=== PATIENT | female | born 1995 | race Caucasian/White ===

== ENCOUNTER 2020-02-05 10:19 | Emergency (ER) | payer BC, SELFPAY ==
--- NOTE | ~2020-02-05 | XR_ITS ---
EXAMINATION: XR chest 1V portable EXAM DATE: 02/05/2020 10:50 INDICATION: Cough. TECHNIQUE: Portable AP frontal chest x-ray was obtained. There is no prior study for comparison. FINDINGS: There is moderate hyperinflation. The lungs are clear. There are no pleural effusions. Th e cardiomediastinal silhouette is within normal limits. There is no pneumothorax suspected. The bon es and soft tissues are unremarkable. IMPRESSION: 1. No acute cardiopulmonary findings. 2. Hyperinflation. Reviewed, dictated and finalized at location G.
--- NOTE | 2020-02-05 10:25 | ECG_ITS ---
Measurements Intervals [place] Rate: 71 P: 109 MD: 127 QRS: 97 QRSD: 102 T: 120 QT: 405 QTc: 443 Interpretive Statements SINUS RHYTHM WITH SINUS ARRHYTHMIA ARM LEADS REVERSED INCOMPLETE RIGHT BUNDLE BRANCH BLOCK DELAYED PRECORDIAL R/S TRANSITION BORDERLINE ECG Electronically Signed On 02-05-2020 13:44:11 CDT by Diogenes Rosario D.O.
[2020-02-05 10:30] VITALS: BP 125/74; PULSE 74; RESP 20; TEMP 36.9; O2SAT 98
[2020-02-05] MEDS: SODIUM CHLORIDE 0.9% IV 1,000 ML 999 ML IV CONT (10:58)
[2020-02-05] MEDS: FAMOTIDINE 20 MG/2 ML VIAL IV PUSH (10:59)
[2020-02-05 11:20] LABS: Basophils Percent Auto 0.3 % (0.2-1.2); Eosinophils Percent Auto 0.3 % (0-4.4); Hematocrit 42.1 % (37.0-47.0); Hemoglobin 14.1 g/dL (12.0-15.0); Immature Granulocyte Absolute 0.01 K/mm3 (0.00-0.031); Immature Granulocyte Percent A 0.3 % (0-0.5); Lymphocytes Absolute Auto 0.98 K/mm3 (0.9-3.2); Mean Corpuscular HGB Conc 33.5 g/dl (32-36); Mean Corpuscular Hemoglobin 29.7 pg (26-34); Mean Corpuscular Volume 88.6 fl (80-100); Mean Platelet Volume 10.9 fl (7.4-10.4); Monocytes Absolute Auto 0.2 K/mm3 (0.1-0.6); Monocytes Percent Auto 6.9 % (2.6-8.5); Neutrophils Absolute Auto 2.3 K/mm3 (1.3-6.7); Neutrophils Percent Auto 64.2 % (45.5-73.1); Platelet Count Result 192 k/mm3 (150-375); Red Blood Count 4.75 M/mm3 (4.2-5.4); Red Cell Distribution Width 11.9 % (11.5-14.5); White Blood Count 3.5 K/mm3 (4.5-10.0)
[2020-02-05 11:28] LABS: Prothrombin Time 12.7 Seconds (11.1-14.7)
[2020-02-05 11:30] LABS: Partial Thromboplastin Time 29.5 SECONDS (22.3-36.8)
[2020-02-05 11:36] LABS: Potassium 3.9 mmol/L (3.4-5.0)
[2020-02-05 11:39] LABS: Alanine Aminotransferase 26 U/L (4-35); Albumin Level 4.3 g/dL (3.5-5.1); Alkaline Phosphatase 45 U/L (38-126); Anion Gap 12.9 mmol/L (7-16); Aspartate Amino Transferase 32 U/L (14-36); Bilirubin,Total < 0.1 mg/dL (0.2-1.3); Blood Urea Nitrogen 12 mg/dL (7-17); CRP < 0.5 mg/dL (<1.0); Calcium 8.8 mg/dL (8.4-10.2); Carbon Dioxide 24 mmol/L (22-30); Chloride 103 mmol/L (98-107); Estimated CRCL calculation 83 ml/min; Estimated Glomerular Filt Rate > 60; Glucose 95 mg/dL (65-105); Sodium 136 mmol/L (137-145)
--- NOTE | 2020-02-05 11:41 | ED.GENADULT ---
HPI - General Adult General Chief complaint: Unspecified <Boyd Mendosa PA-C - Last Filed: 02/05/20 11:47> Stated complaint: chest pain, COVID + yesterday <Boyd Mendosa PA-C - Last Filed: 02/05/20 11:47> Time Seen by Provider: 02/05/20 10:23 <Boyd Mendosa PA-C - Last Filed: 02/05/20 11:47> Source: patient <Boyd Mendosa PA-C - Last Filed: 02/05/20 11:47> Mode of arrival: ambulatory <Boyd Mendosa PA-C - Last Filed: 02/05/20 11:47> Limitations: no limitations <Boyd Mendosa PA-C - Last Filed: 02/05/20 11:47> History of Present Illness HPI narrative: Patient is a 24-year-old female who presents noting that she has positive for COVID has had symptoms for the last several days her roommates were also both positive patient notes she has intermittent symptoms which tend to be worse in the morning and evening. Patient has been taking [id number] Tylenol with some improvement. Patient denies vomiting diarrhea patient has had some intermittent. Right-sided chest discomfort and shortness of breath which was intermittent and resolved but is otherwise felt okay. Patient denies productive cough at this time <Boyd Mendosa PA-C - Last Filed: 02/05/20 11:47> Related Data Allergies/adverse reactions: Allergies Allergy/AdvReac Type Severity Reaction Status Date / Time No Known Allergies Allergy Verified 02/05/20 10:46 <Boyd Mendosa PA-C - Last Filed: 02/05/20 11:47> Review of Systems Review of Systems: All systems reviewed & are unremarkable except as noted in HPI and below <Boyd Mendosa PA-C - Last Filed: 02/05/20 11:47> PMFSH Social History Social History: Social History (Updated 02/05/20 @ 11:44 by Boyd Mendosa PA-C) Smoking status: Never smoker Gender identity (if verbalized by the patient): Female <Boyd Mendosa PA-C - Last Filed: 02/05/20 11:47> Exam Narrative: Exam Narrative: GENERAL: Well-appearing, well-nourished, and in no acute distress. HEAD: Normocephalic, atraumatic. EYES: PERRLA and EOMI. ENT: Nares clear, no rhinorrhea or epistaxis. Mucous membranes moist. Oropharynx without tonsillar hypertrophy exudate or other lesions. CHEST: Clear to auscultation. No respiratory distress. No wheezes rales or rhonchi HEART: Regular rate and rhythm. No murmur heard. Normal peripheral pulses. ABDOMEN: Soft, nontender, nondistended EXTREMITIES: Normal range of motion. No edema. SKIN: Warm, dry, no rash. NEURO: No focal deficits. Alert and oriented x3. PSYCH: Normal mood and affect. <Boyd Mendosa PA-C - Last Filed: 02/05/20 11:47> Course Course Emergency Course: Patient in the room in no distress aware of case findings treatment plan and diagnosis given medications to include fluids in the emergency department noting that she is feeling much better no high risk changes in the blood work or imaging <NASIM Clarke Last Filed: 02/05/20 11:47> Vital Signs Vital signs: Vital Signs Temperature 98.4 F 02/05/20 10:30 Pulse Rate 74 02/05/20 10:30 Respiratory Rate 20 02/05/20 10:30 Blood Pressure 125/74 02/05/20 10:30 Pulse Oximetry 98 02/05/20 10:30 Temperature 98.8 F 02/05/20 11:56 Pulse Rate 66 02/05/20 11:56 Respiratory Rate 16 02/05/20 11:56 Blood Pressure 133/82 02/05/20 11:56 Pulse Oximetry 99 02/05/20 11:56 <Boyd Mendosa PA-C - Last Filed: 02/05/20 11:47> Vital Signs Temperature 98.4 F 02/05/20 10:30 Pulse Rate 74 02/05/20 10:30 Respiratory Rate 20 02/05/20 10:30 Blood Pressure 125/74 02/05/20 10:30 Pulse Oximetry 98 02/05/20 10:30 Temperature 98.8 F 02/05/20 11:56 Pulse Rate 66 02/05/20 11:56 Respiratory Rate 16 02/05/20 11:56 Blood Pressure 133/82 02/05/20 11:56 Pulse Oximetry 99 02/05/20 11:56 <Stephanie Lara MD - Last Filed: 02/05/20 17:56> Medical Decision Making MDM Narrative
[2020-02-05 11:56] VITALS: BP 133/82; PULSE 66; RESP 16; TEMP 37.1; O2SAT 99
== END 2020-02-05 12:00 | disposition home or self-care (01) ==
PROVIDERS: Emergency Medicine Emergency Medical Services; Emergency Provider General Practice
DX: U07.1 COVID-19 (principal); I45.10 Unspecified right bundle-branch block
CPT/HCPCS: 36415; 71045; 80053; 85025; 85610; 85730; 86140; 93005; 96361; 96365; 96375; 99284; J0131; J1100; J7030